=== PATIENT | male | born 1945 | race Caucasian/White ===

== ENCOUNTER → 2021-04-20 | Outpatient (CLI) | payer MEDICARE ==
[~2021-04-20] MED LIST: ASPI81TA45 PO; B12/1TAB PO; CHOL10003 PO; DEXT20TA8 PO; DUTA0.5C PO; FENO160T PO; FLUT9.9S NS; GLUC-111 PO; INSU100I13 SC; LEVO125T5 PO; MULT-717 PO; NIAC-27 PO; PANT40TA6 PO; PRAS10TA9 PO; RAMI10CA59 PO; ROSU10TA2 PO; TAMS-11 PO; UBID100C41 PO; VIT1CAPS16 PO; flaxseed oil PO; magnesium PO; turmeric PO
[2021-04-20 11:35] LABS: MICROSCOPIC NOT IND
[2021-04-20 11:43] LABS: ALBUMIN 3.7 g/dL (3.4-5.0); ANION GAP 3 mmol/L (5-15); CALCIUM 8.8 mg/dL (8.5-10.1); CHLORIDE 110 mmol/L (98-107); PROTHROMBIN TIME 10.7 Seconds (9.6-11.5)
[2021-04-20 11:46] LABS: BASOPHILS % (AUTO) 1 % (0-1); EOSINOPHILS % (AUTO) 2 % (1-7); LYMPHOCYTES % (AUTO) 30 % (22-44); MEAN CORPUSCULAR HEMOGLOBIN 30.8 pg (27.5-34.5); MEAN CORPUSCULAR HGB CONC 33.3 g/dL (33.2-36.2); MEAN PLATELET VOLUME 9.2 fL (7.4-10.4); MONOCYTES % (AUTO) 10 % (2-9); NEUTROPHILS % (AUTO) 57 % (42-75); PLATELET COUNT 291 x10^3/uL (130-400); RED BLOOD COUNT 4.05 x10^6/uL (4.38-5.82); RED CELL DISTRIBUTION WIDTH 15.3 % (9.4-14.8)
[2021-04-20 11:47] LABS: ALANINE AMINOTRANSFERASE 32 U/L (12-78); ALKALINE PHOSPHATASE 78 U/L (45-117); BILIRUBIN,TOTAL 0.4 mg/dL (0.2-1.0); TOTAL PROTEIN 7.9 g/dL (6.4-8.2)
== END | disposition home or self-care (01) ==
LOC: STAR 10:16
PROVIDERS: ATTEND Urology
DX: Z01.818 Encounter for other preprocedural examination (principal); N32.89 Other specified disorders of bladder; Z20.822 Contact with and (suspected) exposure to COVID-19
CPT/HCPCS: 36415; 80053; 81003; 85025; 85610; 87086; 93005; U0003; U0005

== ENCOUNTER 2021-04-26 12:27 | Day surgery (SDC) | payer MEDICARE ==
[~2021-04-26] VITALS: Ht 180.3 cm; Wt 113.6 kg
[2021-04-26] MEDS ORDERED: CHLORHEXIDINE 15 ML UDC PO ONE (13:00)
[2021-04-26] MEDS ORDERED: LACTATED RINGERS 1,000 ML IV SCH (13:00)
[2021-04-26 13:01] VITALS: BP 151/81
[2021-04-26] MEDS ORDERED: GEMCITABINE HCL 1,000 MG in SODIUM CHLORIDE 0.9% 23.7 ML IS ONE (15:00)
[2021-04-26] MEDS ORDERED: CEFAZOLIN 1,000 MG ONE (16:26)
[2021-04-26] MEDS ORDERED: DEXAMETHASONE 4 MG/ML, 1ML ONE (16:26)
[2021-04-26] MEDS ORDERED: PROPOFOL 10 MG/ML, 20ML ONE (16:26)
[2021-04-26] MEDS ORDERED: SUCCINYLCHOLINE 20 MG/ML, 10ML ONE (16:26)
[2021-04-26] MEDS ORDERED: ROCURONIUM 10MG/ML,5ML ONE (16:26)
[2021-04-26] MEDS ORDERED: FENTANYL PF 100 MCG/2ML ONE (16:48)
[2021-04-26] MEDS ORDERED: SUGAMMADEX 200 MG/2 ML IVPush ONE (17:26)
[2021-04-26] MEDS ORDERED: MEPERIDINE/PF 25MG/0.5ML IVPush PRN (18:00)
[2021-04-26] MEDS ORDERED: ALBUTEROL SULFATE 2.5 MG/3 ML NPPB PRN (18:00)
[2021-04-26] MEDS ORDERED: ACETAMINOPHEN 325 MG TABLET PO PRN (18:00)
[2021-04-26] MEDS ORDERED: FENTANYL PF 100 MCG/2ML IV PRN (18:00)
[2021-04-26] MEDS ORDERED: OXYcodone 5 MG/5 ML ORAL.SOL UDC PO PRN (18:00)
[2021-04-26] MEDS ORDERED: hydrALAzine 20 MG/ML, 1ML IV PRN (18:00)
[2021-04-26] MEDS ORDERED: DIAZEPAM 5 MG/ML, 2ML IVPush PRN (18:00)
[2021-04-26] MEDS ORDERED: LABETALOL 5MG/ML, 20ML IV PRN (18:00)
[2021-04-26] MEDS ORDERED: PROMETHAZINE 25 MG/ML, 1ML IV PRN (18:00)
[2021-04-26] MEDS ORDERED: KETOROLAC 30 MG/1 ML IV PRN (18:00)
[2021-04-26] MEDS ORDERED: HYDROmorphone 2 MG/ML, 1ML IVPush PRN (18:00)
== END 2021-04-26 18:55 | disposition home or self-care (01) ==
LOC: OUT 12:27
PROVIDERS: ATTEND Urology
DX: N32.89 Other specified disorders of bladder (principal); N30.30 Trigonitis without hematuria; N30.20 Other chronic cystitis without hematuria; I25.10 Atherosclerotic heart disease of native coronary artery without angina pectoris; E11.9 Type 2 diabetes mellitus without complications; E66.9 Obesity, unspecified; E03.9 Hypothyroidism, unspecified; E78.5 Hyperlipidemia, unspecified; Z79.82 Long term (current) use of aspirin; Z79.4 Long term (current) use of insulin; Z79.890 Hormone replacement therapy; Z79.899 Other long term (current) drug therapy
CPT/HCPCS: 52234; 82962; 88305; J0330; J0690; J1100; J2704; J3010; J7120; J9201